=== PATIENT | female | born 1950 | race Caucasian/White ===

== ENCOUNTER → 2016-09-16 | Outpatient (CLI) | payer MEDICARE, MEDICAID ==
[~2016-09-16] MED LIST: AMOX500C2 PO; ASP81TEC PO; BUDE10.22 IH; CALC-787 PO; HCT25T PO; KCL20TCR PO; METO25TA PO; METO25TA2 PO; MULT1CAP27 PO; POTA20PI PO; QNPR20T PO; REGADENOSON 0.4 MG/5 ML SYR (LEXISCAN) IV ONE; TR5C15 TOP; ZLP10T PO; ZOLP1.75 PO
[2016-09-16] MEDS: CATHETER FLUSH 10 ML SYR IV PRN ×2 (11:47→13:10)
[2016-09-16 12:50] VITALS: BP 131/97
[2016-09-16 13:07] VITALS: BP 131/97
--- NOTE | 2016-09-17 12:28 | STRESS TEST ---
DATE OF SERVICE: 09/16/2016 RESTING AND POST REGADENOSON TECHNETIUM 99M TETROFOSMIN SPECT CT IMAGING ORDERING PHYSICIAN: Lisa Villagran APRN. PRIMARY CARE PHYSICIAN: Dr. Whit Huber. OTHER PHYSICIAN: Dr. Cassandra Ugarte. CLINICAL DIAGNOSIS: Chest discomfort, coronary artery disease. Baseline images were carried out after injection of 10.95 mCi of [id number]. This was followed by 0.4 mg regadenoson and 29.8 mCi of technetium 99m-tetrofosmin for stress imaging. The electrocardiogram showed sinus rhythm at baseline and it did not change significantly with the regadenoson infusion. She tolerated the procedure well. Review of images at rest and following stress does not indicate any distinct perfusion defects consistent with significant myocardial ischemia or infarction. Gaited images show normal global left ventricular systolic function with normal regional wall motion. Left ventricular ejection fraction is calculated to be 65%. Left ventricular end diastolic volume is 33 mL. CONCLUSION: 1. No evidence of significant myocardial ischemia or infarction on this study. 2. Normal global left ventricular systolic function with a calculated ejection fraction of 65%. 3. Normal regional wall motion. Job ID: [id number] DocumentID: [id number] Dictated Date: 09/16/2016 18:34:08 Monument Mason Date: 09/17/2016 09:34:39 Dictated By: CASSANDRA UGARTE MD, MA, FACP, FACC,
== END ==
LOC: CARD 11:07
PROVIDERS: ATTEND Nurse Practitioner Family
DX: I25.10 Atherosclerotic heart disease of native coronary artery without angina pectoris (principal); R07.89 Other chest pain
CPT/HCPCS: 78452; 93017

== ENCOUNTER → 2016-10-22 | Outpatient (CLI) | payer MEDICARE, MEDICAID ==
[~2016-10-22] MED LIST changes: -REGADENOSON 0.4 MG/5 ML SYR (LEXISCAN) IV ONE
--- NOTE | 2016-10-22 12:25 | Diagnostic Imaging Report ---
PROCEDURE: CT urinary tract, rule out kidney stone. TECHNIQUE: Multiple contiguous axial images were obtained through the abdomen and pelvis without the use of intravenous contrast. INDICATION: Bilateral flank pain, right greater than left. COMPARISON: 02/18/2016. FINDINGS: Included views of the lung bases are clear. There is calcified coronary atherosclerosis. CT ABDOMEN: No renal or ureter calculi seen on either side. Additionally, there is no hydroureteronephrosis or other evidence of obstruction. No renal mass type lesions are identified on this noncontrast exam. Hepatic parenchyma is diffusely hypodense consistent with hepatic steatosis. Hypodense cysts are also noted within lateral segment of left lobe of the liver. The spleen, pancreas, and adrenal glands have an unremarkable noncontrast CT appearance. Small bowel loops are nondistended. Normal appendix cannot be adequately identified, but there is no pericecal inflammation. There is colonic diverticulosis, but no CT evidence of acute diverticulitis. There is no loculated fluid collection, free fluid, nor free air within the abdomen. No abnormal mesenteric or retroperitoneal adenopathy is seen. There is moderate calcified aortic and arterial atherosclerosis. Bony structures show no acute abnormalities. CT PELVIS: Urinary bladder is unopacified and minimally distended. No calculi are seen within urinary bladder. There is somewhat abnormal thickened appearance of the wall the rectum. It measures approximately 1 cm in thickness (image 119, series 3). There is no loculated fluid collection, free fluid, nor free air within the pelvis. No abnormal adenopathy is seen. Bony structures show no acute abnormalities. IMPRESSION: 1. Unremarkable noncontrast CT of the kidneys and bilateral collecting systems. 2. Hepatic steatosis. 3. Colonic diverticulosis, but no CT evidence of acute diverticulitis. 4. Abnormal thickened appearance to the wall of the rectum. This may be artifactual and related to incomplete distention, but underlying malignancy cannot be excluded. Nonspecific infectious or inflammatory proctitis is also considered. Clinical correlation recommended. Dictated by: Dictated on workstation # [id number]
== END ==
LOC: RAD 11:16
PROVIDERS: ATTEND Nurse Practitioner Community Health
DX: R31.9 Hematuria, unspecified (principal); R10.84 Generalized abdominal pain; K76.0 Fatty (change of) liver, not elsewhere classified; K57.30 Diverticulosis of large intestine without perforation or abscess without bleeding; K62.9 Disease of anus and rectum, unspecified
CPT/HCPCS: 74176

== ENCOUNTER 2016-11-14 05:34 | Outpatient (CLI) | payer MEDICARE, MEDICAID ==
[~2016-11-14] VITALS: Ht 165.1 cm; Wt 89.8 kg
[2016-11-14] MEDS ORDERED: LISI-552 PO (10:09)
[2016-11-14] MEDS ORDERED: FLUT1AER IH (10:09)
[2016-11-14] MEDS ORDERED: PROP10TA8 PO (10:09)
[2016-11-14] MEDS ORDERED: OMEP20CA12 PO (10:09)
[2016-11-18] MEDS ORDERED: PANT40TA2 PO (13:20)
[2016-11-18] MEDS ORDERED: SUCR1TAB36 PO (13:20)
== END 2016-11-14 10:19 ==
LOC: PREOP 05:34
PROVIDERS: ATTEND Surgery
DX: Z01.818 Encounter for other preprocedural examination (principal); K21.9 Gastro-esophageal reflux disease without esophagitis

== ENCOUNTER 2016-11-18 09:58 | Day surgery (SDC) | payer MEDICARE, MEDICAID ==
[~2016-11-18] VITALS: Ht 165.1 cm; Wt 89.8 kg
[~2016-11-18 09:58] MED LIST changes: +FLUT1AER IH; +LISI-552 PO; +OMEP20CA12 PO; +PROP10TA8 PO
[2016-11-18 10:10] VITALS: BP 126/88
[2016-11-18] MEDS ORDERED: LACTATED RINGERS 1,000 ML IV PRN (10:15)
[2016-11-18] MEDS ORDERED: HURRICAINE EXT TUBE (BENZOCAINE) XX PRN (10:15)
[2016-11-18] MEDS ORDERED: MIDAZOLAM 2 MG/2 ML (VERSED) VIAL ONE (11:17)
[2016-11-18] MEDS ORDERED: FAMOTIDINE 20MG/2ML IV (PEPCID) ONE (11:17)
[2016-11-18] MEDS ORDERED: ONDANSETRON 4 MG/2 ML (SDV) Z0FRAN ONE (11:17)
[2016-11-18] MEDS ORDERED: proPOfol 200 MG/20 ML (DIPRIVAN) VIAL IV ONE (11:18)
--- NOTE | 2016-11-18 11:25 | Progress Note-Pre Operative ---
Pre-Operative Progress Note H&P Reviewed The H&P was reviewed, patient examined and no changes noted. Date Seen by Provider: Nov 18, 2016 Time Seen by Provider: 11:24 Date H&P Reviewed: Nov 18, 2016 Time H&P Reviewed: 11:24 Pre-Operative Diagnosis: epigastric abdominal pain, gerd, abdnormal ct findings ABIGAIL SEXTON DO Nov 18, 2016 11:25 am
[2016-11-18 12:15] VITALS: BP 135/67
[2016-11-18 12:40] VITALS: BP 143/80
[2016-11-18 12:57] VITALS: BP 143/80
--- NOTE | 2016-11-18 13:19 | Operative Report ---
Operative Report Date of Procedure/Surgery Nov 18, 2016 Surgeon (s) ABIGAIL SEXTON DO Jive Developer (s): na Post-Operative Diagnosis gastriits, small hiatal hernia, diverticulosis, transverse colon polyp Procedure Performed egd c biopsy, colonoscopy c hot bx polypectomy Description of Procedure Anesthesia Type: MAC Estimated blood loss (mL): none Specimen(s) collected/removed antrum, transverse colon polyp Description of the Procedure COMPLICATIONS: None. INDICATIONS: The patient is a 66 female who presented with GERd and abnormal ct scan. She was recommended to have EGD and colonoscopy. She understands the risks and benefits and wished to proceed with procedure. Consent was signed and on the chart. The patient was taken to the endoscopy suite, placed in left lateral recumbent position. Timeout was performed. Scope was inserted into the mouth, down the esophagus, stomach and into the duodenum without difficulty. There are no polyps, masses or ulcerations within the duodenum. The scope was slowly retracted back into the stomach where slight erythema in the antrum. Biopsy of the antrum at this area was obtained. The scope was then slowly retracted back and retroflexed noting a small hiatal hernia. Small polyp benign appearance present. Scope was returned to its normal position, slowly withdrawn back into the distal esophagus, there was no erythematous changes at the GE junction. Scope was slowly retracted back noting no other pathology. Digital rectal exam was performed and there were no palpable polyps, masses or ulcerations. Scope was inserted in the rectum and advanced all the way to the cecum with minimal difficulty. Prep was adequate. Scope was then slowly retracted back. There were no polyps, masses or ulcerations within the cecum, ascending, descending and sigmoid colon. In the transverse colon small polyp present hot biopsy polypectomy performed. Once in the rectum, scope was also retroflexed noting internal hemorrhoids. Scope was returned to its normal position, slowly withdrawn until completely removed. The patient tolerated procedure well without any complications. The patient was taken to recovery room in stable condition. RECOMMENDATIONS: Patient will follow up in the office to discuss pathology results in 2-3 weeks. The patient would recommend repeat colonoscopy in 5 years, if she has any problems at that time. Will try protonix and carafate and await biopsy results. Findings of the Procedure see above Allergies and Home Medications Allergies Coded Allergies: codeine (Verified Allergy, Unknown, 06/07/12) erythromycin base (Verified Allergy, Unknown, 11/14/16) influenza virus vaccine, specific (Verified Allergy, Unknown, 04/27/13) paroxetine HCl (Verified Allergy, Unknown, 06/07/12) Home Medications Aspirin 81 Mg Tabec, 81 MG PO DAILY, (Reported) Fluticasone/Vilanterol 1 Each Blst.w.dev, 1 EACH IH DAILY, (Reported) Lisinopril 20 Mg Tablet, 20 MG PO DAILY, (Reported) Omeprazole 20 Mg Capsule.dr, 20 MG PO DAILY, (Reported) Propranolol HCl 10 Mg Tablet, 10 MG PO BID, (Reported) ABIGAIL SEXTON DO Nov 18, 2016 1:19 pm
[2016-11-18] MEDS ORDERED: PANT40TA2 PO (13:20)
[2016-11-18] MEDS ORDERED: SUCR1TAB36 PO (13:20)
--- NOTE | 2016-11-18 13:21 | Discharge Inst-Simple/Standard ---
Discharge Inst-Standard Discharge Medications New, Converted or Re-Newed RX: RX on Chart Patient Instructions/Follow Up Plan of Care/Instructions/FU: 3 weeks [place] Activity as Tolerated: Yes Discharge Diet: Regular Diet ABIGAIL SEXTON DO Nov 18, 2016 1:21 pm
== END 2016-11-18 13:35 | disposition home or self-care (01) ==
LOC: ENDO 09:58
PROVIDERS: ATTEND Surgery
DX: K63.5 Polyp of colon (principal); K57.30 Diverticulosis of large intestine without perforation or abscess without bleeding; K21.9 Gastro-esophageal reflux disease without esophagitis; K44.9 Diaphragmatic hernia without obstruction or gangrene; K29.50 Unspecified chronic gastritis without bleeding; F17.210 Nicotine dependence, cigarettes, uncomplicated; I10 Essential (primary) hypertension; I25.10 Atherosclerotic heart disease of native coronary artery without angina pectoris; E78.5 Hyperlipidemia, unspecified; J45.909 Unspecified asthma, uncomplicated; J44.9 Chronic obstructive pulmonary disease, unspecified; F32.9 Major depressive disorder, single episode, unspecified; F41.9 Anxiety disorder, unspecified; Z79.899 Other long term (current) drug therapy
CPT/HCPCS: 88305; 88342